=== PATIENT | female | born 2000 ===

== ENCOUNTER 2023-04-28 14:38 | Outpatient (CLI) | payer OTHER | END 2023-04-28 16:41 | disposition home or self-care (01) | LOC: PRENATAL 14:38 | PROVIDERS: ATTEND Obstetrics & Gynecology Maternal & Fetal Medicine | DX: O35.9XX0 Maternal care for (suspected) fetal abnormality and damage, unspecified, not applicable or unspecified (principal); O35.3XX0 Maternal care for (suspected) damage to fetus from viral disease in mother, not applicable or unspecified; O44.00 Complete placenta previa NOS or without hemorrhage, unspecified trimester; Z3A.19 19 weeks gestation of pregnancy ==

== ENCOUNTER 2023-06-30 13:58 | Outpatient (CLI) | payer OTHER | END 2023-06-30 13:59 | disposition home or self-care (01) | LOC: PRENATAL 13:58 | PROVIDERS: ATTEND Obstetrics & Gynecology Maternal & Fetal Medicine | DX: O26.849 Uterine size-date discrepancy, unspecified trimester (principal); O44.00 Complete placenta previa NOS or without hemorrhage, unspecified trimester; O26.20 Pregnancy care for patient with recurrent pregnancy loss, unspecified trimester; Z3A.28 28 weeks gestation of pregnancy ==

== ENCOUNTER 2023-08-06 15:45 | Outpatient (CLI) | payer OTHER | END 2023-08-06 15:47 | disposition home or self-care (01) | LOC: PRENATAL 15:45 | PROVIDERS: ATTEND Obstetrics & Gynecology Maternal & Fetal Medicine | DX: O26.849 Uterine size-date discrepancy, unspecified trimester (principal); O36.8199 Decreased fetal movements, unspecified trimester, other fetus; O26.20 Pregnancy care for patient with recurrent pregnancy loss, unspecified trimester; Z3A.33 33 weeks gestation of pregnancy ==

== ENCOUNTER 2023-09-16 15:56 | Inpatient (IN) | payer OTHER ==
[~2023-09-16] VITALS: Ht 167.6 cm; Wt 76.7 kg
[2023-09-16] MEDS ORDERED: PRENATAL TABLE1 EAC1 PO (16:28)
[2023-09-16 16:43] LABS: HEMATOCRIT 32.6 % (36.0-45.00); HEMOGLOBIN 11.1 g/dL (12.0-15.00); MEAN CELL VOLUME 84.2 fL (80.00-100.00); MEAN CORPUSCULAR HEMOGLOBIN 28.7 pg (27.00-32.0); MEAN CORPUSCULAR HGB CONC 34.1 g/dl (32.0-36.0); PLATELET COUNT 247 K/uL (150-450); RED BLOOD COUNT 3.87 M/uL (4.00-6.00); RED CELL DISTRIBUTION WIDTH 13.9 % (11.5-14.5)
[2023-09-16 16:45] LABS: URINE APPEARANCE Cloudy; URINE BILIRRUBIN Negative (NEGATIVE); URINE BLOOD Small; URINE COLOR Yellow; URINE LEUKOCYTE Negative; URINE NITRATE Negative; URINE PROTEIN Negative (NEGATIVE)
[2023-09-16] MEDS ORDERED: RINGERS SOLUTION,LACTATED 1,000 ML IV SCH (16:45)
[2023-09-16 16:56] LABS: URINE BACTERIA 2119.1 uL (0.0-1933); URINE EPITHELIAL CELLS 10.2 uL (0.0-38.8); URINE RBC 70.1 uL (0.0-20.8)
[2023-09-16 17:04] LABS: INR < 0.93; PARTIAL THROMBOPLASTIN TIME 25.2 SECONDS (22.0-34.0); PROTHROMBIN TIME 9.5 SECONDS (9.0-11.5)
[2023-09-16 17:20] LABS: ALBUMIN 2.8 gm/dL (3.4-5.0); BILIRUBIN TOTAL 0.36 mg/dL (0.3-1.2); CREATININE SERUM 0.56 mg/dL (0.55-1.02); GFR 131.9; GLOBULINA 3.5 G/DL (2.4-3.5); POTASSIUM 3.66 mEq/L (3.5-5.1); TOTAL PROTEIN 6.3 gm/dL (6.4-8.2)
[2023-09-16 17:21] LABS: URINE GLUCOSE 100 MG/DL (NEGATIVE)
[2023-09-16 17:22] LABS: URINE CRYSTALS FEW /HPF; URINE MUCUS SCANT
[2023-09-16] MEDS ORDERED: MISOPROSTOL 25 MCG/4 ML GEL.W.APPL ONE (19:44)
[2023-09-16] MEDS ORDERED: MISOPROSTOL 25 MCG/4 ML GEL.W.APPL VAG ONE (19:45)
[2023-09-17] MEDS ORDERED: OXYTOCIN 10 UNITS/ML VIAL ONE (07:24)
[2023-09-17] MEDS ORDERED: OXYTOCIN 500 ML IV SCH (07:30)
[2023-09-17] MEDS ORDERED: PROMETHAZINE HCL 25 MG/ML AMPUL ONE (09:56)
[2023-09-17] MEDS ORDERED: PROMETHAZINE HCL 50 MG/ML AMPUL IV ONE (10:00)
[2023-09-17] MEDS ORDERED: MEPERIDINE HCL/PF 50 MG/ML VIAL IV ONE (10:00)
[2023-09-17] MEDS ORDERED: CHLORHEXIDINE GLUCONATE 120 ML BOTTLE TOP ONE ×2 (11:02→14:45)
[2023-09-17] MEDS ORDERED: ERYTHROMYCIN BASE 1 GM TUBE OP ONE ×2 (11:02→15:00)
[2023-09-17] MEDS ORDERED: OXYTOCIN 20 UNITS/1000ML RL PIGGYBAG IV ONE ×2 (11:02→11:03)
[2023-09-17] MEDS ORDERED: LIDOCAINE HCL 1% 10ML VIAL IJ ONE (15:00)
[2023-09-17] MEDS ORDERED: OXYTOCIN 1,000 ML IV ONE (15:00)
[2023-09-17] MEDS ORDERED: METHYLERGONOVINE MALEATE 0.2 MG/ML AMPUL IV SCH (16:40)
[2023-09-17] MEDS ORDERED: METHYLERGONOVINE MALEATE 0.2 MG/ML AMPUL ONE (16:43)
[2023-09-17] MEDS ORDERED: RINGERS SOLUTION,LACTATED 1,000 ML IV SCH (17:00)
[2023-09-17] MEDS ORDERED: IBUprofen 400 MG TABLET PO PRN (17:00)
[2023-09-17] MEDS ORDERED: ERYTHROMYCIN BASE 1 GM TUBE OP SCH (17:00)
[2023-09-17] MEDS ORDERED: CHLORHEXIDINE GLUCONATE 120 ML BOTTLE TOP SCH (17:00)
[2023-09-17] MEDS ORDERED: OXYTOCIN 1,000 ML IV SCH (17:00)
[2023-09-17 19:13] LABS: HEMATOCRIT 27.7 % (36.0-45.00); HEMOGLOBIN 9.4 g/dL (12.0-15.00); MEAN CELL VOLUME 84.8 fL (80.00-100.00); MEAN CORPUSCULAR HEMOGLOBIN 28.8 pg (27.00-32.0); PLATELET COUNT 270 K/uL (150-450); RED BLOOD COUNT 3.26 M/uL (4.00-6.00); RED CELL DISTRIBUTION WIDTH 13.5 % (11.5-14.5)
== END 2023-09-19 13:37 | disposition home or self-care (01) | DRG 807 ==
LOC: LDR 15:56 → OB/GYN 09-17 17:02
PROVIDERS: ADMIT Obstetrics & Gynecology; ATTEND Obstetrics & Gynecology
PROC: 3E0P7VZ Introduction of Hormone into Female Reproductive, Via Natural or Artificial Opening (ICD-10-PCS; 2023-09-16)
PROC: 4A1HXCZ Monitoring of Products of Conception, Cardiac Rate, External Approach (ICD-10-PCS; 2023-09-16)
PROC: 10E0XZZ Delivery of Products of Conception, External Approach (ICD-10-PCS; principal; 2023-09-17)
PROC: 0KQM0ZZ Repair Perineum Muscle, Open Approach (ICD-10-PCS; 2023-09-17)
PROC: 3E033VJ Introduction of Other Hormone into Peripheral Vein, Percutaneous Approach (ICD-10-PCS; 2023-09-17)
DX: O70.1 Second degree perineal laceration during delivery (principal); Z37.0 Single live birth; Z3A.39 39 weeks gestation of pregnancy; Z20.822 Contact with and (suspected) exposure to COVID-19